=== PATIENT | female | born 1960 | race Caucasian/White ===

== ENCOUNTER 2021-11-21 17:32 | Emergency (ER) | payer OTHER ==
[2021-11-21] MEDS ORDERED: DEXAMETHASONE 10 MG/ML VIAL PO STA (19:12)
[2021-11-21] MEDS ORDERED: CHERRY SYRUP 10 ML UDC PO ONE (19:12)
--- NOTE | 2021-11-21 19:16 | ED Physician Documentation ---
History of Present Illness - Stated complaint Stated Complaint: BEE STING - Chief complaint Chief Complaint: Wound - Additonal information Additional information: 61-year-old female presents emergency department for evaluation of a bee sting. She had a sting on the back of her occiput about 2 hours prior to arrival. She did take a Claritin. Since then she has developed some minor hives on her upper extremities and legs. No shortness of air or tongue or lip swelling. Denies chest pain or shortness of breath. Review of Systems Constitutional: denies: Fever, Chills Nose: reports: Reviewed and negative Cardiac: reports: Reviewed and negative Respiratory: reports: Reviewed and negative GI: reports: Reviewed and negative : reports: Reviewed and negative Skin: reports: Rash Musculoskeletal: reports: Reviewed and negative PD PAST MEDICAL HISTORY - Allergies Allergies/Adverse Reactions: Allergies Allergy/AdvReac Type Severity Reaction Status Date / Time bee venom protein (honey bee) Allergy Hives Verified 11/21/21 17:45 PD ED PE NORMAL - General General: Alert and oriented X 3, No acute distress, Well developed/nourished, Other (Mild area of swelling and erythema on the posterior occiput consistent with a bee sting injury) - Cardiac Cardiac: RRR, No murmur - Respiratory Respiratory: No respiratory distress, Clear bilaterally - Abdomen Abdomen: Normal bowel sounds, Soft - Derm Derm: Normal color, Warm and dry, No rash (Blanchable well-demarcated hives on the upper extremity) Results - Vitals Vitals: Vital Signs - 24 hr 11/21/21 17:38 Heart Rate 84 Respiratory 14 Rate Blood Pressure 166/85 H O2 Saturation 100 Oxygen O2 Source Room air PD MEDICAL DECISION MAKING - ED course Complexity details: considered differential, d/w patient ED course: 61-year-old female presents with a bee sting injury to her posterior occiput. She is denying any chest pain or shortness of air but has developed some superficial hives on her upper extremities. She did take Claritin at home. She was administered 10 mg Decadron here in the emergency department and I will make the recommendation for Benadryl 25 mg twice daily for the next 2 to 3 days. Otherwise emergent return precautions were discussed for worsening symptoms Departure - Departure Disposition: 01 Home, Self Care Clinical Impression: Hives Bee sting reaction Qualifiers: Encounter type: initial encounter Injury intent: accidental or unintentional Qualified Code(s): T63.441A - Toxic effect of venom of bees, accidental (unintentional), initial encounter Condition: Stable Record reviewed to determine appropriate education?: Yes Comments: Nelly you were seen today after a bee sting on your head. You have developed some superficial hives in your arms. In order to manage this we have given you a one-time dose of Decadron. You can continue the Claritin during the day. You would also benefit from taking some Benadryl 25 mg once or twice daily to help reduce any other histamine reactions. If at any point you find that you are having worsening symptoms, difficulty breathing, chest pain tongue or lip swelling then please return immediately to the ER for second evaluation
[2021-11-21 19:30] VITALS: BP 183/91
== END 2021-11-21 19:30 | disposition home or self-care (01) ==
LOC: ED 17:32
DX: L50.9 Urticaria, unspecified (principal); T63.441A Toxic effect of venom of bees, accidental (unintentional), initial encounter
CPT/HCPCS: 99282; A9270